=== PATIENT | male | born 1990 | race Caucasian/White ===

== ENCOUNTER 2020-06-24 05:37 | Emergency (ER) | payer BC, SELFPAY ==
[~2020-06-24] VITALS: Ht 175.3 cm; Wt 61.2 kg
[2020-06-24 05:50] VITALS: BP_SYST 122
--- NOTE | 2020-06-24 05:50 | NUR ---
Patient triaged and placed in TENT. VSS and patient appears in no acute distress at this time. Accompanied by SELF, awaiting available bed, and MD notified of need for MSE.
--- NOTE | 2020-06-24 06:02 | NUR ---
Patient to ER bed 8 to gown for evaluation. Side rails up.
--- NOTE | 2020-06-24 06:11 | NUR ---
Rapid COVID swab sent to lab for immediate processing
--- NOTE | 2020-06-24 06:13 | NUR ---
PT BIB FAMILY TO ED C/O HEADACHE, SORETHROAT, BODY ACHES, CHILLS, NAUSEA, DIARRHEA, COUGH, LOSS OF TASTE X 2 WEEKS. PT DENIES SOB AND CP PT SYMPTOMS OFF AND ON BUT PROGRESSIVELY GETTING WORSE VSS NO S/S OF ACUTE DISTRESS NO OTHER COMPLAINTS NOTED RESTING ON GURNEY RAILS UP
[2020-06-24] MEDS ORDERED: IBUPROFEN 600 MG TABLET ONE (06:50)
[2020-06-24] MEDS ORDERED: IBUPROFEN 600 MG TABLET PO ONE (07:00)
[2020-06-24 07:13] VITALS: BP_SYST 122
--- NOTE | 2020-06-24 07:13 | NUR ---
Patient given written and verbal discharge instructions and verbalizes understanding. ER MD discussed with patient the results and treatment provided. Patient in stable condition. ID arm band removed. Patient educated on pain management and to follow up with PMD. Pain Scale 0/10 Opportunity for questions provided and answered.
--- NOTE | 2020-06-24 07:40 | NUR ---
DR SCHMIDT NOTIFIED OF +COVID TEST AND TO CALL PT, PT WAS DISCHARGED FROM ER AND TOLD DR WOULD CALL IF +. DR SCHMIDT REMINDED X2
--- NOTE | 2020-06-24 10:45 | NUR ---
PT RETURNED TO ER FOR A WORK EXCUSE. NOTE GIVEN REQUESTED.
== END 2020-06-24 07:13 | disposition home or self-care (01) ==
LOC: SED 05:37
DX: U07.1 COVID-19 (principal); B34.9 Viral infection, unspecified; F17.210 Nicotine dependence, cigarettes, uncomplicated
CPT/HCPCS: 36415; 99283

== ENCOUNTER 2020-09-10 06:46 | Emergency (ER) | payer BC, SELFPAY ==
[~2020-09-10] VITALS: Ht 175.3 cm; Wt 65.8 kg
[2020-09-10 06:59] VITALS: BP_SYST 137
[2020-09-10 07:17] VITALS: BP_SYST 137
== END 2020-09-10 07:17 | disposition home or self-care (01) ==
LOC: SED 06:46
DX: B34.9 Viral infection, unspecified (principal); F17.210 Nicotine dependence, cigarettes, uncomplicated
CPT/HCPCS: 99283

== ENCOUNTER 2021-04-09 19:10 | Emergency (ER) | payer BC, SELFPAY ==
[~2021-04-09] VITALS: Ht 172.7 cm; Wt 68.0 kg
[2021-04-09 19:10] VITALS: BP_SYST 133
[2021-04-09] MEDS ORDERED: NACL 0.9% 2,000 ML IV ONE (20:00)
[2021-04-09 20:45] LABS: ANION GAP 8 (5-15); CALCIUM 9.4 mg/dL (8.4-11.0); CHLORIDE 101 mmol/L (98-107); CREATININE 1.15 mg/dL (0.55-1.30); GFR AFRICAN AMERICAN 97 mL/min (>90); GLUCOSE 93 mg/dL (70-99); POTASSIUM 3.6 mmol/L (3.5-5.1); SODIUM SERUM 139 mmol/L (136-145); UREA NITROGEN, BLOOD 10 mg/dL (8-21)
[2021-04-09 20:48] LABS: PROTHROMBIN TIME 10.7 SECS (9.5-12.5)
[2021-04-09 20:50] LABS: ALANINE AMINOTRANSFERASE 31 U/L (12-78); ALBUMIN 4.3 g/dL (3.4-4.8); ASPARTATE AMINOTRANSFERASE 21 U/L (10-37); TOTAL BILIRUBIN 0.3 mg/dL (0.0-1.0)
[2021-04-09 20:55] LABS: BASOPHILS % (AUTO) 0.2 % (0.0-2.0); EOSINOPHILS # (AUTO) 0.2 K/uL (0.0-0.4); EOSINOPHILS % (AUTO) 1.6 % (0.0-4.0); HEMATOCRIT 38.2 % (36-54); LYMPHOCYTES # (AUTO) 1.4 K/uL (1.0-5.5); LYMPHOCYTES % (AUTO) 14.7 % (20.5-51.5); MEAN CORPUSCULAR HEMOGLOBIN 31 pg (27-31); MEAN CORPUSCULAR HGB CONC 34 % (32-36); MEAN CORPUSCULAR VOLUME 92 fL (79.0-98.0); MONOCYTES # (AUTO) 0.6 K/uL (0.0-1.0); MONOCYTES % (AUTO) 6.8 % (1.7-9.3); NEUTROPHILS # (AUTO) 7.3 K/uL (1.8-7.7); NEUTROPHILS % (AUTO) 76.7 % (40.0-70.0); PLATELET COUNT (AUTO) 198 K/uL (130-430); RED BLOOD CELL COUNT(AUTO) 4.17 MIL/uL (4.2-6.2); RED CELL DISTRIBUTION WIDTH 14.2 % (9.0-15.0); WHITE BLOOD COUNT (AUTO) 9.6 K/uL (4.8-10.8)
[2021-04-09 20:59] LABS: ALCOHOL, BLOOD < 3 mg/dL (<10)
[2021-04-09 22:13] LABS: BILIRUBIN,URINE NEGATIVE (NEGATIVE); BLOOD, URINE NEGATIVE (NEGATIVE); CLARITY/URINE CLEAR (CLEAR); GLUCOSE,URINE NEGATIVE (NEGATIVE); KETONES,URINE NEGATIVE (NEGATIVE); LEUKOCYTE ESTERASE ,URINE TRACE (NEGATIVE); NITRITE, URINE NEGATIVE (NEGATIVE); PROTEIN URINE NEGATIVE (NEGATIVE); UROBILINOGEN,URINE 0.2 (0.2-1.0)
[2021-04-09 22:16] LABS: COLOR,URINE STRAW (YELLOW)
[2021-04-09 22:44] LABS: BARBITURATE, URINE NEGATIVE (NEG <=200); BENZODIAZEPINE, URINE POSITIVE (NEG <=150); CANNABINOID, URINE POSITIVE (NEG <=50); COCAINE, URINE NEGATIVE (NEG <=150); METHAMPHETAMINES SCREEN,URINE NEGATIVE (NEG <=500); OPIATE, URINE NEGATIVE (NEG <=100); PHENCYCLIDINE SCREEN,URINE NEGATIVE (NEG <=25); UR TRICYCLIC ANTIDEPRESSANTS POSITIVE (NEG <=300); URINE AMPHETAMINE NEGATIVE (NEG <=500); URINE METHADONE NEGATIVE (NEG <=200); URINE OXYCODONE SCREEN NEGATIVE (NEG <=100); URINE PROPOXYPHENE SCREEN NEGATIVE (NEG <=300)
[2021-04-09] MEDS ORDERED: HALOPERIDOL LACTATE 5 MG/ML VIAL IM ONE (22:45)
[2021-04-09 23:04] LABS: BACTERIA,URINE RARE /HPF (None Seen); MUCUS,URINE None Seen /LPF (None Seen); RBC,URINE NONE SEEN /HPF (0-3)
[2021-04-10 06:29] VITALS: BP_SYST 145
== END 2021-04-10 06:28 | disposition home or self-care (01) ==
LOC: SED 19:10
DX: R41.82 Altered mental status, unspecified (principal); R94.31 Abnormal electrocardiogram [ECG] [EKG]
CPT/HCPCS: 36415; 70450; 76376; 80053; 80307; 81000; 84484; 85025; 85610; 85730; 87086; 93005; 96360; 96372; 99285; G0482; J1630; J7030